=== PATIENT | male | born 1990 | race Hispanic/Latino ===

== ENCOUNTER 2016-11-15 11:04 | Emergency (ER) | payer OTHER ==
[2016-11-15 11:05] VITALS: BP 137/69; PULSE 118; RESP 16; O2SAT 92
--- NOTE | 2016-11-15 11:08 | ED.REPORT ---
HPI-Altered Mental Status Date of Service Nov 15, 2016 ED Provider: Silverio Devlin MD This is a 60 year old male with a history of substance abuse presenting to the emergency department via EMS due to seizure-like activity that occurred just prior to arrival. Pt holding a cup of coffee at [employer] with his mom when he suddenly began shaking and fell to the floor, bystanders described seizure-like appearance. When EMS arrived, pt was awake but soon became combative toward medics. En route, he received ketamine 300 mg IM and versed 5 mg IV. Pt recently discharged from a 2-week stay at [facility] for polysubstance abuse. Nursing Notes Stated Complaint: SEIZURE Nursing Notes Reviewed: Yes Allergies: Coded Allergies: No Known Allergies (Unverified , 11/15/16) Scheduled PRN Cyclobenzaprine (Cyclobenzaprine) 5 Mg Tablet 2.5 MG PO HS PRN PRN Spasm General Time Seen by MD: 11:08 Chief Complaint Seizure activity Hx Obtained From: Patient Arrived By: Ambulance Sudden in Onset?: Yes Symptom Duration: Since onset Pertinent Negative: Pt denies other symptoms Recent Healthcare: No recent doctor visit, No recent hospitalization Similar Sx Previous: No Risk Factors )( IC Bleed Risk Strat RF Statements: Risk factors N/A )( SAH Risk Stratification RF Statements: Risk factors N/A Past Medical History Past Medical History Substance abuse Ambulatory Status Independent Review of Systems Unable to Obtain ROS Patient condition Physical Exam Initial Vital Signs Vital Signs (First) Date Time Temp Pulse Resp B/P Pulse Ox O2 Delivery O2 Flow Rate FiO2 11/15/16 11:05 36.7 118 16 137/69 92 Room Air - Initial VS: Reviewed Abdomen / GI: Soft Extremities: Vascular intact, No swelling Skin: Warm, Dry Alertness: Positive: Sedated Head / Eyes: Conjunctiva NL 2 cm laceration over left parietal Neck: Atraumatic, Supple, No meningismus, Full range of motion, No swelling, Non-tender, No midline vertebral tend, No masses, No carotid bruit, Thyroid NL Respiratory / Chest: Breath sounds NL, Breath sounds = bilat, No respiratory distress, No rales, No rhonchi, No wheezing Cardiovascular: Regular rhythm, Heart sounds NL, Peripheral circulation NL Heart Rate / Rhythm: Positive: Tachycardia Mental Status: Positive: Pharmacologically sedated Interpretation & Diagnostics CHEST X-RAY IMPRESSION: No acute cardiopulmonary disease. Dictated by: Pieter Dawson RRA Interpreted: Leonor Monahan MD on 11/15/2016 at 12:14 Transcribed by: LELE on 11/15/2016 at 12:[address] IMPRESSION: 1. No acute intracranial abnormality. Dictated by: Corina Colindres M.D. on 11/15/2016 at 12:12 Approved by: Corina Colindres M.D. on 11/15/2016 at 12:[address] IMPRESSION: No fracture. Dictated by: Corina Colindres M.D. on 11/15/2016 at 12:13 Approved by: Corina Colindres M.D. on 11/15/2016 at 12:15 Lab Results Interpretation Result Diagram: 11/15/16 1140 11/15/16 1140 Test 11/15/16 11:40 11/15/16 12:25 11/15/16 14:47 White Blood Count 16.5th/mm3 (3.8-10.1) Red Blood Count 5.17mil/mm3 (4.40-5.80) Hemoglobin 16.2g/dL (13.8-17.2) Hematocrit 47.8% (41.0-50.0) Mean Corpuscular Volume 92.5fL (81-100) Mean Corpuscular Hemoglobin 31.3pg (27.0-35.0) Mean Corpuscular Hemoglobin Concent 33.9% (32.0-37.0) Red Cell Distribution Width 12.8% (12.3-15.4) Platelet Count 426bil/L (150-400) Neutrophils (%) (Auto) 41.2% (40-74) Lymphocytes (%) (Auto) 40.4% (14-46) Monocytes (%) (Auto) 15.8% (4-12) Eosinophils (%) (Auto) 1.8% (0-5) Basophils (%) (Auto) 0.4% (0-3) Sodium Level 138mEq/L (134-144) Potassium Level 4.1mEq/L (3.5-5.2) Chloride Level 90mEq/L (97-108) Carbon Dioxide Level 11mmol/L (18-29) Blood Urea Nitrogen 13mg/dL (6-20) Creatinine 0.67mg/dL (0.76-1.27) Estimat Glomerular Filtration Rate 152mL/min (>59) Glucose Level 125mg/dL (60-99) Calcium Level 9.8mg/dL (8.5-10.1) Magnesium Level 2.4mg/dL (1.6-2.6) Total Bilirubin 1.6mg/dL (0.0-1.2) Aspartate Amino Transf (AST/SGOT) 92U/L (0-50) Alanine Aminotransferase (ALT/SGPT) 210U/L (0-44) Alkaline Phosphatase 81U/L (25-150) Total Protein 8.6g/dL (6.4-8.4) Albumin 5.0g/dL (3.4-5.0) Salicylates Level 14.5ug/mL (30-250) Acetaminophen Level 24.6ug/mL Rx (10-25) Alcohols < 10mg/dL (0-10) Lactic Acid Level 1.4mmol/L (0.4-2.0) Urine Color Straw (YELLOW) Urine Appearance Hazy (CLEAR,HAZY) Urine pH 7.0 (5.0-8.0) Urine Specific [place] 1.005 (1.003-1.035) Urine Protein Negativemg/dL (NEG,TRACE) Urine Glucose (UA) Negativemg/dL (NEGATIVE) Urine Ketones Negativemg/dL (NEGATIVE) Urine Occult Blood Negative (NEGATIVE) Urine Nitrite Negative (NEGATIVE) Urine Bilirubin Negative (NEGATIVE) Urine Urobilinogen Normalmg/dL (NORMAL) Urine Leukocyte Esterase Negative (NEGATIVE) Urine RBC 0-2/hpf (0-2) Urine WBC 0-5/hpf (0-5) Urine Epithelial Cells Occasional/hpf (NONE-MOD) Urine Crystals None seen (NONE SEEN) Urine Bacteria None/hpf (NONE-FEW) Urine Hyaline Casts None/lpf (NONE) Urine Granular Casts None seen (NONE SEEN) Urine Waxy Casts None seen (NONE SEEN) Urine Red Blood Cell Casts None seen (NONE SEEN) Urine White Blood Cell Casts None seen (NONE SEEN) Urine Mucus None seen (None Seen) Urine Trichomonas None seen (NONE SEEN) Urine Yeast None (NONE SEEN) Urinalysis Comment None Urine Culture Reflexed Not indicated Urine Opiates Screen Positive Urine Methadone Screen Negative Urine Barbiturates Screen Negative Urine Amphetamines Screen Negative Urine Benzodiazepines Screen Positive Urine Cocaine Metabolite Screen Negative Urine Cannabinoids Screen Negative ECG Interpretation ECG Interpretation: Sinus tachycardia at a rate of 122 Time: 12:28 Interpreted by: ED physician Procedures Laceration Management Laceration Management: 2 cm laceration over left parietal Time: 11:43 Procedure Performed by: ED physician Wound Length: 2 cm Repair Skin: [place] Post-Procedure / Complications: Dressing applied, No complications, Condition improved, Tolerated procedure well, Patient stable Re-Eval/Medical Decision Med Decision/Clinical Course 26-year-old male who used IV drugs heroin earlier today presenting with seizure activity. This was reportedly witnessed by bystanders. He reports history of seizures on narcotics in the past. Paramedics gave 250 of ketamine and 7.5 of Versed in route. On arrival patient was not protecting airway and satting mid 80s and we prepared for rapid sequence intubation. Prior to intubation patient became more alert and started protecting his airway. CT brain and C-spine were normal. [place] left scalp. Labs are unremarkable. Tachycardia resolved with IV fluids. Patient was at his baseline and discharged in the care of his mother with plans to go to rehabilitation today which she has an appointment for. Is advised to have his rashard removed in one week. Re-Evaluation/Progress #1: Time of Eval: 11:24 Re-Evaluation/Progress Note: SpO2 in 80s Re-Evaluation/Progress #2: Time of Eval: 11:43 Re-Evaluation/Progress Note: lac management Re-Evaluation/Progress #3: Time of Eval: 14:11 Re-Evaluation/Progress Note: Pt back to baseline per mother, plan for d/c Counseled Regarding: Diagnosis, Lab results, Need for follow-up, When/why to return to ED Patient Discharge & Departure Impression: Primary Impression: Seizure Additional Impression: Heroin abuse Disposition: Home Discharge Condition All VS Reviewed: Yes Condition: Stable Patient Instructions: Non-epileptic Seizures (ED) Additional Instructions: Go directly to your treatment facility. Follow-up with your primary care provider. Return to the emergency department for any new or worsening symptoms Have rashard removed one week. Crit Care Except Billable Proc Time Spent: 30-74 minutes Services Performed: Patient management by me, Time spent at bedside, Reviewing test results, Reviewing imaging, Discussing patient care, Documentation in record, Time with fam/surrogate Scribe Attestation Portions of this note were transcribed by Missy Schafer. I, Dr. Devlin personally performed the history, physical exam and medical decision-making; I reviewed and confirmed the accuracy of the information in the transcribed note. Signed by: nina Chaney. 11/15/2016, 18:00. Silverio Devlin MD Nov 15, 2016 11:08 MISSY SCHAFER Nov 15, 2016 11:16
[2016-11-15] MEDS ORDERED: 0.9% Sodium Chloride 1,000 ML IV ONE ×4 (11:18→13:15)
[2016-11-15 11:43] LABS: BASOPHILS % (AUTO) 0.4 % (0-3); EOSINOPHILS % (AUTO) 1.8 % (0-5); MONOCYTES % (AUTO) 15.8 % (4-12); Mean Corpuscular Hemoglobin 31.3 pg (27.0-35.0); Mean Corpuscular Volume 92.5 fL (81-100); NEUTROPHILS % (AUTO) 41.2 % (40-74); Platelet Count 426 bil/L (150-400)
[2016-11-15 12:06] VITALS: PULSE 116; RESP 15; O2SAT 97
--- NOTE | 2016-11-15 12:14 | DRSVH ---
PROCEDURE: X-RAY CHEST ONE VIEW, PORTABLE ([id number]) INDICATIONS: altered mental status TECHNIQUE: One view of the chest was acquired. COMPARISON: None. FINDINGS: Surgical changes and devices: None. Lungs and pleura: No pleural effusions or pneumothorax. Lungs are clear. Mediastinum: Mediastinal contours appear normal. Heart size is normal. Bones and chest wall: No suspicious bony lesions. Overlying soft tissues appear unremarkable. IMPRESSION: No acute cardiopulmonary disease. Dictated by: Pieter Dawson [facility] Interpreted: Leonor Monahan MD on 11/15/2016 at 12:14 Transcribed by: LELE on 11/15/2016 at 12:14 Approved by: Leonor Monahan MD, PhD on 11/15/2016 at 17:01
--- NOTE | 2016-11-15 12:14 | DRSVH ---
PROCEDURE: CT BRAIN WITHOUT CONTRAST ([id number]) INDICATIONS: altered mental status TECHNIQUE: Noncontrast 4.5 mm thick angled axial sections acquired from the foramen magnum to the vertex, with c oronal reformats. COMPARISON: None. FINDINGS: Image quality: Partially degraded by motion artifact. CSF spaces: Basal cisterns are patent. No extra-axial fluid collections. The ventricles are symmet kacy in size and shape. Brain: No intracranial bleeds or masses. There is cerebral volume loss for age, with resultant vent ricular and sulcal prominence. There are periventricular and deep white matter chronic small vessel ischemic changes. There is intracranial internal carotid artery atherosclerosis. Skull and face: Calvarium and visualized facial bones appear intact, without suspicious lesions. Le ft parietal subgaleal hematoma is present. No evidence of underlying calvarial, nor intracranial abno rmality. Sinuses: Visualized sinuses and mastoids are clear. IMPRESSION: 1. No acute intracranial abnormality. Dictated by: Corina Colindres M.D. on 11/15/2016 at 12:12 Approved by: Corina Colindres M.D. on 11/15/2016 at 12:13
[2016-11-15 12:16] LABS: Magnesium 2.4 mg/dL (1.6-2.6)
--- NOTE | 2016-11-15 12:16 | DRSVH ---
PROCEDURE: CT CERVICAL SPINE WITHOUT CONTRAST ([id number]) INDICATIONS: trauma TECHNIQUE: Noncontrast 3 mm thick sections acquired from the skull base to the T4 level. Sagittal and coronal r eformats were then constructed. For radiation dose reduction, the following was used: automated exp osure control, adjustment of mA and/or kV according to patient size. COMPARISON: None. FINDINGS: Image quality: Excellent. Bones: No fractures or dislocations. Visualized superior ribs are intact. Soft tissues: Prevertebral soft tissues are normal in thickness. No paravertebral hematomas. No ap ical pneumothoraces. IMPRESSION: No fracture. Dictated by: Corina Colindres M.D. on 11/15/2016 at 12:13 Approved by: Corina Colindres M.D. on 11/15/2016 at 12:15
[2016-11-15] MEDS ORDERED: CYCL5TAB PO (14:22)
[2016-11-15 14:43] VITALS: BP 152/89; PULSE 112; RESP 15; O2SAT 99
[2016-11-15 14:58] LABS: APPEARANCE,URINE HAZY (CLEAR,HAZY); COLOR,URINE STRAW (YELLOW)
[2016-11-15 14:59] LABS: OCCULT BLOOD,URINE NEGATIVE (NEGATIVE); UROBILINOGEN,URINE NORMAL (NORMAL)
== END 2016-11-15 14:45 | disposition home or self-care (01) ==
LOC: EDBD 11:04 → MERGE 11:04 → EDUNIT# 11:04 → SED 11:04
DX: R56.9 Unspecified convulsions (principal); F11.10 Opioid abuse, uncomplicated; S01.01XA Laceration without foreign body of scalp, initial encounter; W18.39XA Other fall on same level, initial encounter; Y92.511 Restaurant or cafe as the place of occurrence of the external cause; Y93.89 Activity, other specified; Y99.8 Other external cause status
CPT/HCPCS: 12001; 36415; 70450; 71010; 72125; 80053; 81000; 81002; 82948; 83605; 83735; 85025; 87040; 93005; 96361; 96374; 99285; G0480; J2060; J7030

== ENCOUNTER 2016-11-18 20:22 | Emergency (ER) | payer OTHER ==
[~2016-11-18] VITALS: Ht 182.9 cm; Wt 84.1 kg
[~2016-11-18 20:22] MED LIST: CYCL5TAB PO
[2016-11-18 20:27] VITALS: BP 127/83; PULSE 76; RESP 16; O2SAT 99
--- NOTE | 2016-11-18 21:03 | ED.REPORT ---
HPI-General Illness Date of Service Nov 18, 2016 ED Provider: Dr. Nii Chen M.D. A 26 year old male with a history of substance abuse and seizures (x2) presents to the ED with lightheadedness onset 1.5 hours prior to arrival. The patient reports feeling similar to right before his recent seizure, for which he was evaluated in the ED three days ago. The patient denies other symptoms. He was prescribed gabapentin after his first seizure (approximately 6 months ago) but stopped taking it two months ago. The patient was recently discharged from a heroin detox program and has plans to enter rehabilitation. His mother arrives shortly after his arrival and expresses her ongoing believed that he is been drug free since his detox admission. He was positive for opioids on his arrival recently here, and positive again today. He knowledge his ongoing drug use, but not in his mother's presence. Nursing Notes Stated Complaint: LIGHTHEADED,POSS SEIZURE COMING ON Chief Complaint: Seizure Nursing Notes Reviewed: Yes Allergies: Coded Allergies: No Known Allergies (Unverified , 11/18/16) Scheduled Gabapentin (Gabapentin) 100 Mg Capsule 100 MG PO BID Gabapentin (Gabapentin) 100 Mg Capsule 200 MG PO BID Gabapentin (Gabapentin) 300 Mg Capsule 300 MG PO BID General Time Seen by MD: 21:02 Chief Complaint Other (Lightheadedness) Hx Obtained From: Patient Arrived By: Walk-in Sudden in Onset?: No Onset Occurred: 1 - 4 hours ago Symptom Duration: Since onset Severity: Current: No pain currently Severity: Maximum: No pain Pertinent Negative: Pt denies other symptoms Pertinent Negative: Relieved by nothing Context Related History: Reports Drug dependence, Reports Seizure disorder Recent Healthcare: Recent doctor visit Similar Sx Previous: Yes Past Medical History Past Medical History Substance abuse Prior seizures (x2 as of 11/18/16) Past Surgical History None reported Smoking History Unknown if Ever Smoker Social History Drug Use: IV drugs, THC, Other (Heroin) Other Social History: Good social support, From out of town (Moved from [place]) Ambulatory Status Independent Review of Systems Full Review of Systems Constitutional: Denies: Fever Respiratory: Denies: Non-productive cough, Shortness of breath GI: Denies: Diarrhea, Vomiting Neurologic: Reports: Lightheaded Complete sys rev & neg: except as marked. Physical Exam Vital Signs Vital Signs Date Time Temp Pulse Resp B/P Pulse Ox O2 Delivery O2 Flow Rate FiO2 11/19/16 01:31 36.5 88 18 112/73 97 Room Air 11/18/16 21:44 36.3 75 18 136/75 98 Room Air 11/18/16 20:27 36.6 76 16 127/83 99 Room Air Initial VS: Reviewed Head / Eyes: Atraumatic, Normocephalic ENT: Conjunctiva normal, No scleral icterus Neck: Supple, Full range of motion Respiratory: Breath sounds normal, Clear to auscultation, No respiratory distress Cardiovascular: Regular rate & rhythm, Heart sounds normal Abdomen / GI: Soft, Non-tender Psychiatric: Mood/affect normal, Behavior normal, Normal thought content General/Constitutional: Awake, Alert, No acute distress Skin: Warm, Dry Track bailey to antecubital fossa Neurologic: Oriented X3, Speech NL, No motor deficits, No sensory deficits Interpretation & Diagnostics URINE DRUG SCREEN: + Marijuana + Opiates Otherwise Negative Lab Results Interpretation Result Diagram: 11/18/16222911/18/162229 Test 11/18/16 22:30 11/19/16 00:15 White Blood Count 9.5th/mm3 (3.8-10.1) Red Blood Count 4.32mil/mm3 (4.40-5.80) Hemoglobin 13.9g/dL (13.8-17.2) Hematocrit 39.8% (41.0-50.0) Mean Corpuscular Volume 92.1fL (81-100) Mean Corpuscular Hemoglobin 32.2pg (27.0-35.0) Mean Corpuscular Hemoglobin Concent 34.9% (32.0-37.0) Red Cell Distribution Width 12.4% (12.3-15.4) Platelet Count 248bil/L (150-400) Neutrophils (%) (Auto) 46.5% (40-74) Lymphocytes (%) (Auto) 37.5% (14-46) Monocytes (%) (Auto) 13.6% (4-12) Eosinophils (%) (Auto) 1.6% (0-5) Basophils (%) (Auto) 0.7% (0-3) Sodium Level 140mEq/L (134-144) Potassium Level 4.4mEq/L (3.5-5.2) Chloride Level 100mEq/L (97-108) Carbon Dioxide Level 26mmol/L (18-29) Blood Urea Nitrogen 13mg/dL (6-20) Creatinine 0.63mg/dL (0.76-1.27) Estimat Glomerular Filtration Rate 164mL/min (>59) Glucose Level 102mg/dL (60-99) Calcium Level 9.0mg/dL (8.5-10.1) Total Bilirubin 0.6mg/dL (0.0-1.2) Aspartate Amino Transf (AST/SGOT) 46U/L (0-50) Alanine Aminotransferase (ALT/SGPT) 96U/L (0-44) Alkaline Phosphatase 57U/L (25-150) Total Protein 7.1g/dL (6.4-8.4) Albumin 4.0g/dL (3.4-5.0) Hold Isabel Top Tube Received (Received) Alcohols < 10mg/dL (0-10) Urine Color Straw (YELLOW) Urine Appearance Clear (CLEAR,HAZY) Urine pH 7.0 (5.0-8.0) Urine Specific [place] 1.010 (1.003-1.035) Urine Protein Negativemg/dL (NEG,TRACE) Urine Glucose (UA) Negativemg/dL (NEGATIVE) Urine Ketones Negativemg/dL (NEGATIVE) Urine Occult Blood Negative (NEGATIVE) Urine Nitrite Negative (NEGATIVE) Urine Bilirubin Negative (NEGATIVE) Urine Urobilinogen Normalmg/dL (NORMAL) Urine Leukocyte Esterase Negative (NEGATIVE) Urine RBC 0-2/hpf (0-2) Urine WBC 0-5/hpf (0-5) Urine Epithelial Cells Occasional/hpf (NONE-MOD) Urine Crystals None seen (NONE SEEN) Urine Bacteria None/hpf (NONE-FEW) Urine Hyaline Casts None/lpf (NONE) Urine Granular Casts None seen (NONE SEEN) Urine Waxy Casts None seen (NONE SEEN) Urine Red Blood Cell Casts None seen (NONE SEEN) Urine White Blood Cell Casts None seen (NONE SEEN) Urine Mucus None seen (None Seen) Urine Trichomonas None seen (NONE SEEN) Urine Yeast None (NONE SEEN) Urinalysis Comment None Re-Eval/Medical Decision Med Decision/Clinical Course 26-year-old with substance abuse and possible seizures presents with a feeling of lightheadedness and concern that he might have a seizure. No evidence of seizure activity here. Recent prior ER visit was remarkable for positive tox screen with opioids. A knowledge is opioid and methamphetamine use. He is initially evasive and denying that, but after confrontation with his tox screen results, he acknowledges drug use. He is waiting for a long-term treatment bed being arranged via his mental health practitioner. Mother continues to labor and the impression that he is off drugs, and he has not shared the truth with her. She entered the room on three occasions to provide additional information, and was asked to leave by the patient. She then provided written note, again detailing her concerns that he was off drugs but having seizures and not being treated appropriately. I do not have permission to discuss his care with the mother, and I have asked the patient to enlighten her, but he appears unmotivated to do that. In any case, he felt he did well on gabapentin. Son clearly needs anything, but will restart gabapentin. He needs an EEG, ideally not under the influence of street drugs. He is discharged now in stable condition. Source of Hx: Old records Time of Eval: 00:39 Patient Status: Condition improved Re-Evaluation/Progress Note: Discussed with patient lab results, diagnosis, and plan for discharge. Follow-up and return to the ER instructions given. Patient agrees with plan for care and all questions were addressed. Counseled Regarding: Diagnosis, Lab results, Need for follow-up, When/why to return to ED Discharge & Departure Shift Change Sign-Out Response to Therapy: Improved Primary Impression: Seizure Additional Impression: Substance abuse Disposition: Home Discharge Condition All VS Reviewed: Yes Condition: Improved Patient Instructions: Epilepsy (ED) Additional Instructions: I am not certain that you are having seizures, and some additional evaluation is required. Generally, an electroencephalogram (EEG) needs to be done to evaluate your brain waves. It is critical that you do not use street drugs. We cannot evaluate your brain independent of drugs and decide whether or not you have epilepsy, if you intermittently have drugs on board. Follow-up for your bed date as planned. I wish to the best of luck in your recovery. You may restart gabapentin at 100 mg twice daily for three days, then 200 mg twice daily for three days, then 300 mg twice daily after that. Follow-up with your assigned doctor, and also with neurology. Referrals: NOPCP (PCP) [facility] Scribe Attestation Portions of this note were transcribed by Magaly Streteer. I, Dr. Chen, personally performed the history, physical exam, and medical decision-making; I reviewed and confirmed the accuracy of the information in the transcribed note. Signed by: Princess Dunlap, 11/19/2016, 02:05 copies to: [facility] Nii Chen MD Nov 18, 2016 21:[address] Nov 18, 2016 21:10
[2016-11-18 21:44] VITALS: BP 136/75; PULSE 75; RESP 18; O2SAT 98
[2016-11-18 22:42] LABS: BASOPHILS % (AUTO) 0.7 % (0-3); EOSINOPHILS % (AUTO) 1.6 % (0-5); MONOCYTES % (AUTO) 13.6 % (4-12); Mean Corpuscular Hemoglobin 32.2 pg (27.0-35.0); Mean Corpuscular Volume 92.1 fL (81-100); NEUTROPHILS % (AUTO) 46.5 % (40-74); Platelet Count 248 bil/L (150-400)
[2016-11-19 00:40] LABS: APPEARANCE,URINE CLEAR (CLEAR,HAZY); COLOR,URINE STRAW (YELLOW); OCCULT BLOOD,URINE NEGATIVE (NEGATIVE); UROBILINOGEN,URINE NORMAL (NORMAL)
[2016-11-19] MEDS ORDERED: GABA-500 PO (00:48)
[2016-11-19] MEDS ORDERED: GABA-502 PO (00:48)
[2016-11-19 01:31] VITALS: BP 112/73; PULSE 88; RESP 18; O2SAT 97
== END 2016-11-19 01:33 | disposition home or self-care (01) ==
LOC: MERGE 20:22 → SED 20:22
DX: R56.9 Unspecified convulsions (principal); F19.10 Other psychoactive substance abuse, uncomplicated
CPT/HCPCS: 36415; 80053; 81001; 85025; 99283; G0480